=== PATIENT | female | born 1985 | race Hispanic/Latino ===

== ENCOUNTER 2020-07-10 10:41 | Emergency (ER) | payer SELFPAY ==
[2020-07-10 11:15] LABS: Bilirubin Negative (Negative); Blood, Urine Trace (Negative); Clarity Clear (Clear); Glucose, Urine (Dipstick) Normal (Negative); Ketone, Urine Negative (Negative); Leukocyte 250 Leu/uL (Negative); Nitrite Negative (Negative); Protein, Urine (Dipstick) Negative (Neg-Trace); RBC/HPF 0-3 HPF (0-3); Specific Gravity, Urine 1.007 (1.002-1.036); Squamous Epithelial 0-3 HPF (0-3); Urobilinogen Normal mg/dL (Less than 2)
[2020-07-10 11:20] LABS: Bacteria/HPF 1+ HPF (None Seen)
[2020-07-10] MEDS ORDERED: Ketorolac Tromethamine 30 MG/ML VIAL ONE (11:38)
== END 2020-07-10 11:45 | disposition home or self-care (01) ==
LOC: ERS 10:41
DX: N10 Acute pyelonephritis (principal); Z87.891 Personal history of nicotine dependence
CPT/HCPCS: 81003; 81015; 96372; 99284; J1885

== ENCOUNTER 2020-07-26 03:21 | Emergency (ER) | payer SELFPAY ==
[2020-07-26] MEDS ORDERED: Ketorolac Tromethamine 30 MG/ML VIAL ONE (03:37)
[2020-07-26] MEDS ORDERED: Metoclopramide HCl 10 MG/2 ML VIAL ONE (03:37)
[2020-07-26] MEDS ORDERED: diphenhydrAMINE 50 MG/ML VIAL ONE (03:37)
== END 2020-07-26 05:06 | disposition home or self-care (01) ==
LOC: ERS 03:21
DX: R51.9 Headache, unspecified (principal); Z87.891 Personal history of nicotine dependence
CPT/HCPCS: 96365; 96375; J1200; J1885; J2765